=== PATIENT | male | born 1975 | race Caucasian/White ===

== ENCOUNTER → 2020-07-24 10:55 | Outpatient (CLI) | payer OTHER, SELFPAY ==
[2020-07-24] MEDS: COVID-19 VACC #2, MRNA(MOD) 100 MCG/0.5 ML VIAL IM (11:04)
== END ==
PROVIDERS: Visit Provider Internal Medicine
DX: Z23 Encounter for immunization (principal)
CPT/HCPCS: 0012A; 91301

== ENCOUNTER → 2020-12-19 08:57 | Outpatient (CLI) | payer OTHER, SELFPAY ==
[2020-12-19 19:36] LABS: Add Manual Diff / Slide Review NO; Basophils Absolute Auto 100 /uL (0-100); Basophils Percent Auto 1.2 % (0-2); Eosinophils Absolute Auto 200 /uL (0-450); Eosinophils Percent Auto 2.9 % (2-4); Hemoglobin 14.9 g/dL (13.5-17.5); Lymphocytes Absolute Auto 2700 /uL (1100-4500); Lymphocytes Percent Auto 44.7 % (25-40); Mean Corpuscular Hemoglobin 29.4 PG (26-34); Mean Corpuscular Volume 89.1 fL (80-100); Monocytes Absolute Auto 400 /uL (0-900); Monocytes Percent Auto 7.3 % (3-14); Neutrophils Absolute Auto 2600 /uL (1500-7000); Neutrophils Percent Auto 43.9 % (50-75); Platelet Count 245 X10^3/uL (150-400); Red Blood Cell Count 5.06 X10^6/uL (4.5-5.9); Red Cell Distribution Width 12.8 % (11.6-14.8); White Blood Cell Count 5.9 X10^3/uL (4.5-11.0)
[2020-12-19 19:44] LABS: Alanine Aminotransferase 36 IU/L (<50); Albumin 4.4 g/dL (3.5-5.0); Albumin Globulin Ratio 1.8 (1.0-2.8); Alkaline Phosphatase 88 U/L (38-126); Aspartate Aminotransferase 34 IU/L (17-59); BUN Creatinine Ratio 17.9 (6-22); Bilirubin Total 0.6 mg/dL (0.2-1.3); Blood Urea Nitrogen 14 mg/dL (9-20); Carbon Dioxide 28 mmol/L (22-32); Chloride 107 mmol/L (98-107); Cholesterol 219 mg/dL (140-199); Estimated Glomerular Filt Rate > 60.0 mL/min (>60); Globulin 2.5 g/dL (1.7-4.1); Glucose 97 mg/dL (70-100); HDL Cholesterol 37 mg/dL (40-60); HEMOLYSIS < 15 (0-50); LDL Cholesterol Calculated 147 mg/dL (<100); Potassium 4.3 mmol/L (3.4-5.1); Sodium 142 mmol/L (137-145); Total Protein 6.9 g/dL (6.3-8.2); Triglycerides 174 mg/dL (35-150); Uric Acid 6.2 mg/dL (3.5-8.5)
== END ==
PROVIDERS: PCP Family Medicine; Visit Provider Family Medicine
DX: R03.0 Elevated blood-pressure reading, without diagnosis of hypertension (principal); K57.90 Diverticulosis of intestine, part unspecified, without perforation or abscess without bleeding; M10.9 Gout, unspecified
CPT/HCPCS: 80053; 80061; 84550; 85025

== ENCOUNTER → 2022-11-09 13:56 | Outpatient (CLI) | payer OTHER, SELFPAY ==
[2022-11-09 19:27] LABS: Add Manual Diff / Slide Review NO; Basophils Absolute Auto 0 /uL (0-100); Basophils Percent Auto 0.3 % (0-2); Eosinophils Absolute Auto 100 /uL (0-450); Eosinophils Percent Auto 1.5 % (2-4); Hematocrit 43.1 % (41-53); Hemoglobin 14.9 g/dL (13.5-17.5); Lymphocytes Absolute Auto 3000 /uL (1100-4500); Lymphocytes Percent Auto 40.8 % (25-40); Mean Corpuscular HGB Conc 34.5 % (30-36); Mean Corpuscular Hemoglobin 30.6 PG (26-34); Mean Corpuscular Volume 88.7 fL (80-100); Monocytes Absolute Auto 500 /uL (0-900); Monocytes Percent Auto 6.4 % (3-14); Neutrophils Absolute Auto 3700 /uL (1500-7000); Platelet Count 271 X10^3/uL (150-400); Red Blood Cell Count 4.86 X10^6/uL (4.5-5.9); Red Cell Distribution Width 13.1 % (11.6-14.8); White Blood Cell Count 7.3 X10^3/uL (4.5-11.0)
[2022-11-09 19:39] LABS: Alanine Aminotransferase 40 IU/L (<50); Albumin 4.6 g/dL (3.5-5.0); Albumin Globulin Ratio 1.8 (1.0-2.8); Alkaline Phosphatase 96 U/L (38-126); Aspartate Aminotransferase 38 IU/L (17-59); Bilirubin Total 0.4 mg/dL (0.2-1.3); Blood Urea Nitrogen 17 mg/dL (9-20); Calcium 9.7 mg/dL (8.4-10.2); Carbon Dioxide 25 mmol/L (22-32); Chloride 104 mmol/L (98-107); Cholesterol 228 mg/dL (140-199); Estimated Glomerular Filt Rate > 60 mL/min (>60); Globulin 2.6 g/dL (1.7-4.1); Glucose 97 mg/dL (70-100); HDL Cholesterol 44 mg/dL (40-60); HEMOLYSIS 17 (0-50); LDL Cholesterol Calculated 151 mg/dL (<100); Potassium 3.8 mmol/L (3.4-5.1); Sodium 139 mmol/L (137-145); Total Protein 7.2 g/dL (6.3-8.2); Triglycerides 163 mg/dL (35-150)
== END ==
PROVIDERS: PCP Family Medicine; Visit Provider Family Medicine
DX: E78.2 Mixed hyperlipidemia (principal); I10 Essential (primary) hypertension; M10.9 Gout, unspecified; Z86.010 Personal history of colon polyps; Z87.19 Personal history of other diseases of the digestive system
CPT/HCPCS: 80053; 80061; 85025

== ENCOUNTER 2022-12-08 09:49 | Day surgery (SDC) | payer OTHER, SELFPAY ==
--- NOTE | 2022-12-08 | PATH_ITS ---
[facility] Accession Number: [id number] No. of containers..01 Tissue . 01 Material submitted: . colon - SIGMOID . 01 Diagnosis: Sigmoid Colon Polyp, Biopsy: Tubular adenoma. MRV 12/15/2022 1743 Local . 01 Electronically signed: . Rosmery Adorno MD, Pathologist NPI- [id number] . 01 Gross description: . SIGMOID: Received in formalin is 2 fragment(s) of ayoub, soft tissue measuring 0.3 x 0.2 x 0.2 cm to 0.2 x 0.2 x 0.1 cm submitted entirely in 1 cassette(s) /AAY 12/09/2022 0436 Local . 01 Pathologist provided ICD-10: D12.5 . 01 CPT . 661783 Specimen Comment: A courtesy copy of this report has been sent to [phone] Performed at: 01 [facility] Cyt[facility] [address] [place] [address] [id number] MD Beto Mars MD Phone: [phone]
[2022-12-08] MEDS: LACTATED RINGERS 1,000 ML 100 ML IV (10:02)
[2022-12-08 10:19] VITALS: BP 155/87; PULSE 68; RESP 18; TEMP 36.2; O2SAT 95; BMI 33.9
--- NOTE | 2022-12-08 10:44 | PM.HP.1 ---
History of Present Illness History of Present Illness Date Patient Seen: 12/08/22 Time Patient Seen: 10:44 Chief complaint: Dx Colonoscopy Narrative: 47-year-old man history of diverticular disease and colonic polyps here for screening colonoscopy. Last colonoscopy 67 years ago. No family history of intestinal malignancy. No abdominal concerns including pain, nausea vomiting blood per rectum unintentional weight loss. [facility] Medical History Diverticulosis Encounter for hepatitis C screening test for low risk patient Gout H/O clavicle fracture H/O rotator cuff tear History of meniscal tear Lipid screening Screening for HIV (human immunodeficiency virus) Social History household members: spouse Smoking Status: Former smoker alcohol intake: current Meds Home Medications and Allergies Home Medications Medication Instructions Recorded Confirmed Type colchicine (gout) 0.6 mg tablet 0.6 mg PO DAILY PRN gout #6 tabs 04/24/21 12/08/22 Rx allopurinol 300 mg tablet See Rx Instructions .Route 03/12/22 12/08/22 Rx .COMPLEX #90 tabs Allergies Allergy/AdvReac Type Severity Reaction Status Date / Time No Known Drug Allergies Allergy Verified 12/08/22 10:14 Exam Vital Signs (past 8 hours): - 12/08/22 10:19 Temperature 97.1 F L Pulse Rate 68 Respiratory Rate 18 Blood Pressure 155/87 H Pulse Oximetry 95 Oxygen Delivery Method Room Air Oxygen Delivery Method Room Air Narrative Exam Narrative: General adult man alert oriented no acute distress Chest nonlabored respiration Abdomen soft nontender nondistended Assessment & Plan Assessment and plan (1) History of colonic polyps: Status: Acute Assessment & Plan narrative: The patient requires colorectal screening and colonoscopy is recommended. Technical details were discussed. Risks, benefits, alternatives explained. Risks including but not limited to myocardial infarction, aspiration, bleeding, pain, missed lesion, incomplete examination, need for further radiographic studies, colonic perforation, and need for major abdominal surgery were discussed. All questions were answered to their satisfaction, and they are in agreement with this plan.
--- NOTE | 2022-12-08 10:49 | PM.OP.COLON ---
Operative Date/Time/Diagnoses Date of procedure: 12/08/22 Time of procedure: 10:49 Pre-op diagnosis: Personal history of colonic polyps Post-op diagnosis: other (Colonic polyp x1) Procedure & Clinicians Study performed: Colonoscopy Same procedure as scheduled: Yes Indications: 47-year-old man history of diverticular disease and colonic polyps here for screening colonoscopy. Surgeon: Edi Skaggs Procedure Notes Procedure in detail: The history and physical was performed/updated and the patient is ASA class is 2. The procedure was discussed in detail with the patient. Potential risks complications including infection, bleeding, missed diagnosis, perforation, need for surgery, and were explained. Their questions were answered and informed consent was obtained. Patient was brought to the procedure room and placed standard monitoring equipment. The patient's vital signs were monitored continuously throughout the entire procedure. Prior to starting time-out was performed. The patient was placed in the left lateral recumbent position. Procedural sedation was administered by anesthesia. Examination began with a thorough inspection of the perianal area there was no evidence of fissures, fistulae, external hemorrhoids or cutaneous malignancy. The colonoscopy scope was then placed into the anal canal and was advanced to the cecum, which was identified by the ileocecal valve, the appendiceal orifice and the confluence of the taenia. The scope was then slowly withdrawn examining colon thoroughly in all directions, irrigating it of any residual stool. Sigmoid-3 mm polyp removed with biopsy forceps. Moderate diverticulosis. Remainder of colon unremarkable The patient tolerated the procedure well. They will be discharged once criteria are met. The prep was of good/excellent quality. The withdrawl time was 6 minutes. Specimen(s): other (Sigmoid polyp) Impression: Colonic polyp x1 Post-procedure Recommendations: High fiber diet Plan for aftercare: Follow-up is dependent on pathology. Likely 5 years. Disposition: same day surgery
[2022-12-08 11:08] VITALS: BP 110/69; PULSE 66; RESP 20; TEMP 36.2; O2SAT 94
[2022-12-08 11:13] VITALS: BP 104/70; PULSE 62; RESP 18; O2SAT 95
[2022-12-08 11:20] VITALS: BP 114/76; PULSE 61; RESP 18; TEMP 36.7; O2SAT 94
[2022-12-08 11:21] VITALS: BP 127/81; PULSE 68; RESP 10; O2SAT 95
== END 2022-12-08 11:42 | disposition home or self-care (01) ==
PROVIDERS: Surgery; PCP Family Medicine; Referring Provider Surgery; Visit Provider Surgery
PROC: 0DJD8ZZ Inspection of Lower Intestinal Tract, Via Natural or Artificial Opening Endoscopic (ICD-10-PCS; CPT 45378; principal; 2022-12-08 11:00)
DX: Z12.11 Encounter for screening for malignant neoplasm of colon (principal); Z86.010 Personal history of colon polyps; K57.30 Diverticulosis of large intestine without perforation or abscess without bleeding; D12.5 Benign neoplasm of sigmoid colon
CPT/HCPCS: 45380; J2704

== ENCOUNTER → 2023-11-08 09:37 | Outpatient (CLI) | payer OTHER, SELFPAY | LOC: CAR 09:38 | PROVIDERS: PCP Family Medicine; Referring Provider Family Medicine; Visit Provider Family Medicine | DX: R00.2 Palpitations (principal) | CPT/HCPCS: 93246 ==

== ENCOUNTER → 2023-11-17 09:43 | Outpatient (CLI) | payer OTHER, SELFPAY ==
[2023-11-17 20:10] LABS: Add Manual Diff / Slide Review NO; Basophils Absolute Auto 0 /uL (0-100); Basophils Percent Auto 0.7 % (0-2); Eosinophils Absolute Auto 200 /uL (0-450); Eosinophils Percent Auto 3.2 % (2-4); Hematocrit 45.3 % (41-53); Hemoglobin 15.4 g/dL (13.5-17.5); Lymphocytes Absolute Auto 2300 /uL (1100-4500); Lymphocytes Percent Auto 37.9 % (25-40); Mean Corpuscular HGB Conc 34.1 % (30-36); Mean Corpuscular Hemoglobin 30.7 PG (26-34); Mean Corpuscular Volume 90.2 fL (80-100); Monocytes Absolute Auto 500 /uL (0-900); Monocytes Percent Auto 7.6 % (3-14); Neutrophils Absolute Auto 3000 /uL (1500-7000); Neutrophils Percent Auto 50.6 % (50-75); Platelet Count 279 X10^3/uL (150-400); Red Blood Cell Count 5.02 X10^6/uL (4.5-5.9); Red Cell Distribution Width 12.9 % (11.6-14.8)
[2023-11-17 20:17] LABS: BUN Creatinine Ratio 19.1 (6-22); Blood Urea Nitrogen 17 mg/dL (9-20); Calcium 9.8 mg/dL (8.4-10.2); Carbon Dioxide 24 mmol/L (22-32); Chloride 106 mmol/L (98-107); Cholesterol 229 mg/dL (140-199); Estimated Glomerular Filt Rate > 60 mL/min (>60); Glucose 94 mg/dL (70-100); HDL Cholesterol 36 mg/dL (40-60); HEMOLYSIS 30 (0-50); LDL Cholesterol Calculated 151 mg/dL (<100); Potassium 4.5 mmol/L (3.4-5.1); Sodium 139 mmol/L (137-145); Triglycerides 211 mg/dL (35-150); Uric Acid 6.2 mg/dL (3.5-8.5)
[2023-11-17 20:48] LABS: Prostate Specific Antigen Scrn 0.414 ng/mL (0.1-4.0)
== END ==
PROVIDERS: PCP Family Medicine; Referring Provider Family Medicine; Visit Provider Family Medicine
DX: R07.89 Other chest pain (principal); I10 Essential (primary) hypertension; E78.2 Mixed hyperlipidemia; Z12.5 Encounter for screening for malignant neoplasm of prostate; M1A.09X0 Idiopathic chronic gout, multiple sites, without tophus (tophi)
CPT/HCPCS: 80048; 80061; 84550; 85025; G0103

== ENCOUNTER → 2024-02-03 | Outpatient (CLI) | payer BC, SELFPAY ==
--- NOTE | 2024-02-03 07:57 | DI.ECHO.S_ITS ---
[place] [facility]---------+ [facility] : : [address] : : [place] : : [id number] : : Phone: [phone] Echocardiogram Report + + :Name: ALLAN NARVAEZ Study Date: 02/03/2024 Height: 72 in : :[facility] ReadingLocation: Weight: 255 lb : : Gender: Male BSA: 2.4 m2 : :: 1975 Age: 48 yrs BP: 137/89 mmHg: :Reason For Study: NSVT : :Ordering Physician: SERINA : :EMEKA Performed By: Fawn Almazan : :Referring: EMEKA SMALLS : + + Interpretation Summary Normal sinus rhythm. Normal LV size and wall thickness. Normal wall motion and LV systolic function. Ejection fraction 60-65%. Normal chamber sizes. No significant valvular abnormalities. No PFO based on bubble study. Procedure: A two-dimensional transthoracic echocardiogram with color flow and Doppler was performed. The study quality was technically adequate. There is no prior echocardiogram noted for this patient. A saline contrast injection was performed to assess for cardiac shunting. The injection was performed through an intravenous line in the left arm. The patient was in sinus rhythm with heart rates between 59-77 bpm during the exam. Left Ventricle: The left ventricle is normal in size and wall thickness. The ejection fraction is estimated to be 60-65%. Right Ventricle: The right ventricle is normal in size and function. Atria: The left atrial size is normal. Right atrial size is normal. The atrial septum is aneurysmal. Injection of contrast documented no interatrial shunt. Mitral Valve: The mitral valve is normal in structure and function. There is mild mitral regurgitation. Aortic Valve: The aortic valve is mildly calcified. The aortic valve opens well. There is no aortic valve stenosis. There is trace aortic regurgitation. Tricuspid Valve: The tricuspid valve is normal in structure and function. There is trace tricuspid regurgitation. Pulmonary artery pressures cannot be estimated because of the lack of a measurable TR jet velocity. Pulmonic Valve: The pulmonic valve leaflets are thin and pliable; valve motion is normal. There is no pulmonic valvular regurgitation. Great Vessels: The aortic root is normal size. The dimensions of the ascending aorta are normal. The IVC is of normal diameter and collapses greater than 50% with a sniff. This suggests a low right atrial pressure of 3 mm Hg. Pericardium/ Pleura There is no pericardial effusion. There is no pleural effusion. MMode/2D Measurements & Calculations LVIDd: 4.8 cm LVOT diam: 2.1 cm LVIDs: 3.3 cm Ao root diam: 3.3 cm FS: 31.7 % asc Aorta Diam: 3.3 cm IVSd: 0.96 cm Ao Arch Diam (Prox Trans): 3.9 cm LVPWd: 0.82 cm LV roberson. diameter/BSA (cm/m^2): 2.0 LV sys. diameter/BSA (cm/m^2): 1.4 LA A2 area: 22.9 cm2 RA long axis: 5.2 cm LA A4 area: 19.9 cm2 RA area: 18.1 cm2 LA length (vol): 5.7 cm RA vol: 54.1 ml LA vol: 68.4 ml RA : 22.9 ml/m2 LA vol index: 29.0 ml/m2 IVC diam: 1.5 cm RVD1 (basal): 3.4 cm RVD2 (mid): 3.1 cm TAPSE: 2.2 cm Doppler Measurements & Calculations Ao V2 max: 161.0 cm/sec LVOT Max Henok: 118.8 cm/sec Ao V2 mean: 103.7 cm/sec LV V1 max P.6 mmHg Ao max P.4 mmHg LV V1 VTI: 26.1 cm Ao mean P.1 mmHg KEVIN(I,D): 2.7 cm2 Ao V2 VTI: 33.9 cm KEVIN(V,D): 2.6 cm2 sev ratio: 0.77 KEVIN indexed to BSA (cm^2/m^2): 1.2 MV E max henok: 80.4 cm/sec PA V2 max: 150.3 cm/sec MV A max henok: 45.8 cm/sec PA V2 mean: 98.7 cm/sec MV E/A: 1.8 PA mean P.6 mmHg Med Peak E' Henok: 11.3 cm/sec PA pr(Accel): 20.8 mmHg E/E' med: 7.1 Lat Peak E' Henok: 13.6 cm/sec E/E' lat: 5.9 E/e' average: 6.5 MV dec time: 0.19 sec SV(LVOT): 93.3 ml Electronically signed by: Victoria Haq M.D. on Reading Physician:02/03/2024 11:30 PM
--- NOTE | 2024-02-03 20:07 | DI.NM.S_ITS ---
DATE OF SERVICE: 02/03/2024 EXERCISE STRESS TEST INDICATION: Chest pain, hypertension, hyperlipidemia. CARDIAC STRESS: The patient underwent exercise stress test under the supervision of an attending staff using standard Louis protocol. He walked on Louis protocol for 12 minutes and 24 seconds, achieved maximum heart rate of 169, which was 99% of target heart rate. Resting blood pressure 130/90 and peak blood pressure 220/100 suggestive of hypertensive blood pressure response. Baseline rhythm was sinus. During stress, no convincing ischemic changes seen. Rare PVCs. No chest pain. Had some shortness of breath. Achieved 12.8 METS of workload. ENIO -15%. CONCLUSION: Exercise stress test is negative for inducible ischemia. Excellent exercise tolerance. Hypertensive blood pressure response. No significant arrhythmias. No chest pain. Normal recovery. Overall, low- risk exercise stress test. Silver Whittaker - CANDE/bradly/RENAE doc#: [id number]/job#: [id number] dd: 02/03/2024 17:03:00 dt: 02/03/2024 20:00:00 DICTATING /COPIES TO: Costa Parker MD COPIES MNE: PORFIRIO;
== END ==
LOC: NUCM 07:55
PROVIDERS: PCP Family Medicine; Referring Provider Family Medicine; Visit Provider Family Medicine
DX: I34.0 Nonrheumatic mitral (valve) insufficiency (principal); I47.29 Other ventricular tachycardia; I10 Essential (primary) hypertension; E78.2 Mixed hyperlipidemia; R07.9 Chest pain, unspecified
CPT/HCPCS: 93017; 93306

== ENCOUNTER 2024-07-04 13:36 | Emergency (ER) | payer BC, SELFPAY ==
[2024-07-04 13:50] VITALS: BP 171/97; PULSE 74; RESP 18; TEMP 36.4; O2SAT 98; BMI 35.2
[2024-07-04 16:05] LABS: Add Manual Diff / Slide Review NO; Basophils Absolute Auto 0 /uL (0-100); Basophils Percent Auto 0.8 % (0-2); Eosinophils Absolute Auto 200 /uL (0-450); Eosinophils Percent Auto 2.6 % (2-4); Hematocrit 43.5 % (41-53); Hemoglobin 14.8 g/dL (13.5-17.5); Lymphocytes Absolute Auto 2600 /uL (1100-4500); Lymphocytes Percent Auto 43.6 % (25-40); Mean Corpuscular HGB Conc 34.1 % (30-36); Mean Corpuscular Hemoglobin 29.9 PG (26-34); Mean Corpuscular Volume 87.8 fL (80-100); Monocytes Absolute Auto 300 /uL (0-900); Neutrophils Absolute Auto 2900 /uL (1500-7000); Platelet Count 283 X10^3/uL (150-400); Red Blood Cell Count 4.95 X10^6/uL (4.5-5.9); Red Cell Distribution Width 13.6 % (11.6-14.8); White Blood Cell Count 6.1 X10^3/uL (4.5-11.0)
[2024-07-04 16:13] LABS: Alanine Aminotransferase 69 IU/L (<50); Albumin 4.5 g/dL (3.5-5.0); Albumin Globulin Ratio 1.7 (1.0-2.8); Alkaline Phosphatase 79 U/L (38-126); Aspartate Aminotransferase 48 IU/L (17-59); BUN Creatinine Ratio 21.3 (6-22); Bilirubin Total 0.5 mg/dL (0.2-1.3); Blood Urea Nitrogen 19 mg/dL (9-20); Calcium 9.7 mg/dL (8.4-10.2); Carbon Dioxide 24 mmol/L (22-32); Chloride 108 mmol/L (98-107); Estimated Glomerular Filt Rate > 60 mL/min (>60); Globulin 2.6 g/dL (1.7-4.1); Glucose 112 mg/dL (70-100); HEMOLYSIS < 15 (0-50); Lipase 107 U/L (23-300); Potassium 3.9 mmol/L (3.4-5.1); Sodium 142 mmol/L (137-145); Total Protein 7.1 g/dL (6.3-8.2)
[2024-07-04 16:26] VITALS: BP 161/98; PULSE 61; O2SAT 97
[2024-07-04 16:30] VITALS: BP 156/97; PULSE 62; O2SAT 96
--- NOTE | 2024-07-04 16:48 | ED.ABDPAIN ---
HPI - Abdominal Pain General Chief Complaint: Abdominal Pain Stated Complaint: Stomach pain, Distended Time Seen by Provider: 07/04/24 16:36 Source: patient and family Mode of arrival: Ambulatory History of Present Illness HPI narrative: 49-YEAR-OLD MALE HISTORY OF GOUT, HEART ARRHYTHMIA, DIVERTICULITIS, PRESENTS WITH LEFT LOWER QUADRANT PAIN FOR 4 5 DAYS TOOK OLD ANTIBIOTICS AMOXICILLIN WITH NO SIGNIFICANT RELIEF OF SYMPTOMS CAME IN TO BE EVALUATED. DENIES HEMATURIA PENILE DISCHARGE TESTICULAR PAIN NAUSEA VOMITING DIARRHEA CONSTIPATION. OTHER THAN WHAT IS STATED 14 POINT REVIEW OF SYSTEM IS NEGATIVE Related Data Previous Rx's Medication Instructions Recorded allopurinol 300 mg tablet 300 mg PO DAILY For gout-take 11/01/23 every day. Do not stop. #90 tabs colchicine 0.6 mg tablet 0.6 mg PO DAILY PRN gout #60 tabs 11/01/23 metoprolol succinate 25 mg 25 mg PO DAILY #90 tabs 12/13/23 tablet,extended release 24 hr (Toprol XL) ofloxacin 0.3 % eye drops (Ocuflox) 1 drp EYE-LEFT QID #5 mL 12/13/23 betamethasone dipropionate 0.05 % 1 applic topical QD-BID PRN skin 06/07/24 topical ointment irritation, rash #45 grams Allergies Allergy/AdvReac Type Severity Reaction Status Date / Time No Known Drug Allergies Allergy Verified 07/04/24 09:56 Review of Systems Review of Systems ROS Unobtainable: All systems reviewed & are unremarkable except as noted in HPI and below Patient History Medical History (Updated 07/04/24 @ 17:44 by Freddy Alexandre DO) Lipid screening Encounter for hepatitis C screening test for low risk patient Screening for HIV (human immunodeficiency virus) H/O clavicle fracture History of meniscal tear H/O rotator cuff tear Gout Social History household members: spouse Smoking Status: Former smoker alcohol intake: current Smoking Status: Former smoker alcohol intake frequency: 0-2 drinks per day Alcohol type: beer and hard liquor Exam Narrative Exam Narrative: GENERAL: [49] year old patient appears stated age. Well-developed patient, in mild distress. HEAD: Atraumatic. Normocephalic. EYES: Pupils equal round and reactive. Extraocular motions intact. No scleral icterus. No injection or drainage. ENT: Nose without bleeding, purulent drainage. Throat without erythema, tonsillar hypertrophy or exudate. Airway patent. NECK: Trachea midline. Non tender CARDIOVASCULAR: Regular rate and rhythm without murmurs, gallops, or rubs. RESPIRATORY: Clear to auscultation. Breath sounds equal bilaterally. No wheezes, rales, or rhonchi. GASTROINTESTINAL: Abdomen soft, mod LLQ ttp but no r/r/g EXTREMITIES: No edema or joint tenderness. BACK: Nontender without deformity or crepitance. No flank tenderness. NEURO: AOx3. SKIN: No rash or erythema of visible areas Initial Vital Signs Initial Vital Signs: Vital Signs Temperature 97.6 F 07/04/24 13:50 Pulse Rate 74 07/04/24 13:50 Respiratory Rate 18 07/04/24 13:50 Blood Pressure 171/97 H 07/04/24 13:50 Pulse Oximetry 98 07/04/24 13:50 Oxygen Delivery Method Room Air 07/04/24 13:50 Course Orders Ordered: ED Orders 07/04/24 14:08 Complete Blood Count AUTO DIFF Stat Comprehensive Metabolic Panel Stat Lipase Stat 07/04/24 15:50 EKG-12 Lead Stat 07/04/24 16:48 CT abdomen pelvis w con Stat Lactated Ringer's (Lactated Ringers) 1,000 mls @ 1,000 mls/hr IV BOLUS ONE Stop: 07/04/24 17:48 Ondansetron HCl (Ondansetron 4 Mg/2 Ml Inj) 4 mg IV NOW PRN PRN Reason: Nausea And Vomiting Ondansetron HCl (Ondansetron 4 Mg Odt) 4 mg PO NOW PRN PRN Reason: Nausea And Vomiting Discontinued Medications Ketorolac Tromethamine (Ketorolac 30 Mg/Ml Vial) 15 mg IV NOW ONE Stop: 07/04/24 16:50 Vital Signs Vital signs: Vital Signs - 8 hr 07/04/24 13:50 Temperature 97.6 F Pulse Rate 74 Respiratory Rate 18 Blood Pressure 171/97 H Pulse Oximetry 98 Oxygen Delivery Method Room Air MDM - Abdominal Pain Lab Data 07/04/24 14:08 07/04/24 14:08 Labs: Lab Results 07/04/24 Range/Units 14:08 WBC 6.1 (4.5-11.0) X10^3/uL RBC 4.95 (4.5-5.9) X10^6/uL Hgb 14.8 (13.5-17.5) g/dL Hct 43.5 (41-53) % MCV 87.8 (80-100) fL MCH 29.9 (26-34) PG MCHC 34.1 (30-36) % RDW 13.6 (11.6-14.8) % Plt Count 283 (150-400) X10^3/uL Neut % (Auto) 48.0 L (50-75) % Lymph % (Auto) 43.6 H (25-40) % Hartley % (Auto) 5.0 (3-14) % Eos % (Auto) 2.6 (2-4) % Baso % (Auto) 0.8 (0-2) % Neut # (Auto) 2900 (4353-2654) /uL Lymph # (Auto) 2600 (9988-9861) /uL Hartley # (Auto) 300 (0-900) /uL Eos # (Auto) 200 (0-450) /uL Baso # (Auto) 0 (0-100) /uL Sodium 142 (137-145) mmol/L Potassium 3.9 (3.4-5.1) mmol/L Chloride 108 H (98-107) mmol/L Carbon Dioxide 24 (22-32) mmol/L BUN 19 (9-20) mg/dL Creatinine 0.89 (0.66-1.25) mg/dL Estimated GFR > 60 (>60) mL/min BUN/Creatinine Ratio 21.3 (6-22) Glucose 112 H (70-100) mg/dL Calcium 9.7 (8.4-10.2) mg/dL Total Bilirubin 0.5 (0.2-1.3) mg/dL AST 48 (17-59) IU/L ALT 69 H (<50) IU/L Alkaline Phosphatase 79 (38-126) U/L Total Protein 7.1 (6.3-8.2) g/dL Albumin 4.5 (3.5-5.0) g/dL Globulin 2.6 (1.7-4.1) g/dL Albumin/Globulin Ratio 1.7 (1.0-2.8) Lipase 107 (23-300) U/L Point of care testing: Urine Dip Bedside Urine Glucose Negative Bedside Urine Bilirubin - Negative Bedside Urine Ketone - Negative Urine Specific [place] 1.015 Bedside Urine Occult Blood - Negative Bedside Urine pH 6.5 Bedside Urine Protein - Negative Bedside Urine Urobilinogen - Negative Bedside Urine Nitrite - Negative Bedside Urine Leukocytes - Negative Esterase Imaging Data CT scan - abdomen/pelvis: Radiologist's Impression: [address] [address] [address] Scan Report Signed Patient: Silver Whittaker MR#: [id number] : 1975 Acct:[id number] Age/Sex: 49 / M Date of Service: 07/04/24 Loc: ED Accession Number: [id number] Procedure: CT abdomen pelvis w con Ordering Provider: Freddy Alexandre D.O. PROCEDURE: CT ABDOMEN PELVIS W CON INDICATIONS: abd pain llq TECHNIQUE: After the administration of intravenous contrast, axial sections acquired from the lung bases to the pubic symphysis. Coronal and sagittal reformats were performed. For radiation dose reduction, the following was used: automated exposure control, adjustment of mA and/or kV according to patient size. COMPARISON: None. FINDINGS: Image quality: Diagnostic. Lower Chest: No significant findings. ABDOMEN: Liver: No solid mass. Gallbladder: No radiopaque gallstones or wall thickening. Biliary ducts: No biliary dilation. Pancreas: No ductal dilation. Spleen: Size is within normal limits. Adrenal Glands: No adrenal nodules. Kidneys and Ureters: No hydronephrosis. No solid mass. No complex renal cystic lesion which requires follow up. Stomach and Bowel: Normal colonic caliber, without significant wall thickening. Colonic diverticulosis without evidence of diverticulitis. Normal appendix. Peritoneum: No abnormal intraperitoneal fluid. No free air. Ventral Wall: No significant ventral hernia. Abdominal Nodes: No retroperitoneal or mesenteric adenopathy by size criteria. Vessels: Aorta and inferior vena cava are normal in size. PELVIS: Pelvic Organs: Unremarkable. Bladder: No bladder wall thickening, accounting for underdistention. Pelvic Nodes: No enlarged lymph nodes. Miscellaneous: Moderate left inguinal hernia containing fat. Bones: No aggressive osseous abnormality. Degenerative disc disease of the lumbar spine. Grade 1 anterolisthesis of L5 on S1 secondary to pars defects. IMPRESSION: Moderate left inguinal hernia containing fat. Colonic diverticulosis without evidence of diverticulitis. No nephrolithiasis. Grade 1 anterolisthesis of L5 on S1 secondary to pars defects. Recommend outpatient neuro surgical referral as findings could lead to dynamic instability. Dictated by: Hernan Salmeron M.D. on 07/04/2024 at 16:59 Approved by: Hernan Salmeron M.D. on 07/04/2024 at 17:02 [facility] Narrative Medical decision making narrative: All lab work, CT scan, all reviewed including vital signs, triage note, medication list, and previous ER visits. differential diagnosis includes kidney stone, kidney infection, diverticulitis, pancreatitis, hernia, tumor or mass. patient will follow up with his PCP for potential GI referral for repeat endoscopy and/or colonoscopy. Return with new or worsening symptoms. Discharge Plan Departure Patient Disposition: Home Clinical Impression: Abdominal pain, acute, left lower quadrant Inguinal hernia Qualifiers: Obstruction and gangrene presence: without obstruction or gangrene Laterality: unilateral Recurrence: not specified as recurrent Qualified Code(s): K40.90 - Unilateral inguinal hernia, without obstruction or gangrene, not specified as recurrent Activity Restrictions/Additional Instructions: return with new or worsening symptoms. Follow up with PCP for referral to Neurosurgery and GI MD. Prescriptions: No Action betamethasone dipropionate 0.05 % ointment 1 applic topical QD-BID PRN (Reason: skin irritation, rash) Qty: 45 0RF allopurinol 300 mg tablet 300 mg PO DAILY Qty: 90 3RF colchicine 0.6 mg tablet 0.6 mg PO DAILY PRN (Reason: gout) Qty: 60 0RF Rx Instructions: take 2 tablets (1.2 mg) by mouth at first sign of flare. May repeat with 1 tablet (0.6 mg) one hour later if needed. ofloxacin [Ocuflox] 0.3 % drops 1 drp EYE-LEFT QID Qty: 5 0RF metoprolol succinate [Toprol XL] 25 mg tablet extended release 24 hr 25 mg PO DAILY Qty: 90 0RF Referrals: Marty Hernandez MD [Primary Care Provider] - Stand Alone Forms: Patient Portal/API/Survey
[2024-07-04 17:00] VITALS: PULSE 60; O2SAT 96
[2024-07-04] MEDS: KETOROLAC 30 MG/ML VIAL 15 MG IV (17:22)
[2024-07-04] MEDS: LACTATED RINGERS 1,000 ML 1000 ML IV (17:22)
[2024-07-04 17:30] VITALS: PULSE 57; O2SAT 97
[2024-07-04 17:48] VITALS: BP 183/101; PULSE 64; O2SAT 96
== END 2024-07-04 17:48 | disposition home or self-care (01) ==
PROVIDERS: Emergency Provider Family Medicine; PCP Family Medicine
DX: K40.90 Unilateral inguinal hernia, without obstruction or gangrene, not specified as recurrent (principal)
CPT/HCPCS: 74177; 80053; 81003; 83690; 85025; 96374; 99283; 99284; J1885; Q9967

== ENCOUNTER → 2024-07-17 18:36 | Outpatient (CLI) | payer BC, SELFPAY ==
--- NOTE | 2024-07-17 18:39 | DI.MRI.S_ITS ---
PROCEDURE: MR THORACIC SPINE WO CON INDICATIONS: Thoracic radiculopathy vrs lateral abdom hernina TECHNIQUE: Noncontrast sagittal T1 spine echo and T2 fast spin echo, sagittal STIR, and T2 fast spin echo through the thoracic spine. COMPARISON: None. FINDINGS: Image quality: Excellent. Alignment and Curvature: There is normal bony alignment. Bone Marrow: Marrow is of normal overall signal. No acute vertebral body compression fractures. Spinal Cord: Visualized spinal cord is normal in size and signal. Paraspinous Soft Tissues: No paravertebral masses. Miscellaneous: On axial images, central canal and foramina appear widely patent at all scanned levels. There is a shallow left paracentral disc protrusion at T5-T6. There is mild right paracentral disc bulge at T6-T7. These do not impinge on the cord or nerve root structures. IMPRESSION: No thoracic canal stenosis or foraminal stenosis. Mild disc protrusion at T5-T6 and disc bulge at T6-T7. Dictated by: Kingston Colby M.D. on 07/17/2024 at 19:38 Approved by: Kingston Colby M.D. on 07/17/2024 at 19:42
== END ==
LOC: MRI 18:37
PROVIDERS: PCP Family Medicine; Referring Provider Family Medicine; Visit Provider Family Medicine
DX: M51.14 Intervertebral disc disorders with radiculopathy, thoracic region (principal)
CPT/HCPCS: 72146

== ENCOUNTER → 2024-08-08 10:48 | Outpatient (CLI) | payer BC, SELFPAY ==
--- NOTE | 2024-08-08 10:49 | DI.US.S_ITS ---
PROCEDURE: US ABDOMEN LIMITED INDICATIONS: MASS/PAIN LEFT UPPER QUADRANT ?LUQ ABDOMINAL WALL HERNIA TECHNIQUE: Real-time focused scanning was performed of the abdomen, with image documentation. COMPARISON: [facility], CT, CT ABDOMEN PELVIS W CON, 07/04/2024, 16:57. FINDINGS: No significant abnormality is seen in the pelvic area of concern in the left upper quadrant /left flank abdominal wall. Spleen is normal in size at 9.4 cm. Left kidney is normal and measures up to 11.7 cm. IMPRESSION: No significant sonographic abnormality at the palpable area of concern. Approved by: Mauricio Reed M.D. on 08/08/2024 at 19:22
== END ==
LOC: US 10:48
PROVIDERS: PCP Family Medicine; Referring Provider Family Medicine; Visit Provider Family Medicine
DX: N63.21 Unspecified lump in the left breast, upper outer quadrant (principal); R10.12 Left upper quadrant pain
CPT/HCPCS: 76705

== ENCOUNTER 2025-01-24 08:52 | Day surgery (SDC) | payer BC, SELFPAY ==
[2025-01-05 08:25] VITALS: BMI 34.9
--- NOTE | 2025-01-23 10:51 | EKG_ITS ---
[facility] [address] [place] [address] Test Date: 2025-01-23 Pat Name: Silver Whittaker Department: [facility] Room: Gender: Male Banquet Lead: WILFREDO : 1975 Requested By: Order Number: [id number] Reading MD: Freddy Jarrett MD Measurements Intervals [place] Rate: 88 P: 44 HI: 266 QRS: -52 QRSD: 96 T: 13 QT: 350 QTc: 423 Interpretive Statements Sinus rhythm with 1st degree AV block Pulmonary disease pattern Left anterior fascicular block Minimal voltage criteria for LVH, may be normal variant ( R in aVL ) NO PRIOR TRACING Electronically Signed On 01-24-2025 8:18:05 PDT by Freddy Jarrett MD
[2025-01-24] VITALS (9 sets, daily range): BP systolic 115–153; BP diastolic 57–92; PULSE 54–59; RESP 12–19; TEMP 36.2–36.8; O2SAT 93–99
--- NOTE | 2025-01-24 09:16 | EKG_ITS ---
[place] [address] [address] [address] Test Date: 2025-01-24 Pat Name: Silver Whittaker Department: Room: Gender: Male Assistant Financial Accountant: Andrea LENZ : 1975 Requested By: Order Number: [id number] Reading MD: Freddy Jarrett MD Measurements Intervals [place] Rate: 52 P: 43 GA: 164 QRS: 1 QRSD: 102 T: 39 QT: 430 QTc: 399 Interpretive Statements Sinus bradycardia Electronically Signed On 01-25-2025 7:36:10 PDT by Freddy Jarrett MD
[2025-01-24] MEDS: LACTATED RINGERS 1,000 ML 42 ML IV (09:32)
[2025-01-24] MEDS: ACETAMINOPHEN 325 MG TABLET 975 MG PO (09:32)
--- NOTE | 2025-01-24 10:05 | P.HP_ITS ---
History of Present Illness History of Present Illness Date Patient Seen: 01/24/25 Time Patient Seen: 10:06 Chief complaint: Robotic LIH repair w/mesh Narrative: Silver is a 49-year-old man with a left inguinal hernia. See the office note for details. His left upper quadrant discomfort and bulge has gone away. [facility] Medical History (Updated 08/22/24 @ 12:56 by Marcella Alvarez RN) Polymorphic ventricular tachycardia Neoplasm of uvula Lipid screening Encounter for hepatitis C screening test for low risk patient Screening for HIV (human immunodeficiency virus) H/O clavicle fracture History of meniscal tear H/O rotator cuff tear Gout Social History household members: spouse Smoking Status: Never smoker alcohol intake: current Meds Home Medications and Allergies Home Medications ?Medication ?Instructions ?Recorded ?Confirmed ?Type colchicine 0.6 mg tablet 0.6 mg PO DAILY PRN gout #60 tabs 11/01/23 01/24/25 Rx metoprolol succinate 25 mg 25 mg PO DAILY #90 tabs 12/2701/24/25 Rx tablet,extended release 24 hr (Toprol XL) ofloxacin 0.3 % eye drops (Ocuflox) 1 drp EYE-LEFT QID #5 mL 12/13/23 11/23/24 Rx allopurinol 300 mg tablet 300 mg PO DAILY For gout-isaac e 11/08/24 01/24/25 Rx every day. Do not stop. #90 tabs Allergies Allergy/AdvReac Type Severity Reaction Status Date / Time No Known Drug Allergies Allergy Verified 01/24/25 09:26 Exam Vital Signs (past 8 hours): - 01/24/25 09:44 Temperature 97.2 F L Pulse Rate 57 L Respiratory Rate 16 Blood Pressure 148/90 H Pulse Oximetry 97 Oxygen Delivery Method Room Air Oxygen Delivery Method Room Air Const General: No acute distress Assessment & Plan Assessment and plan (1) Inguinal hernia, left: Status: Acute Plan Robotic left inguinal hernia repair with mesh. We will look around the abdomen to make sure there were no other abnormalities. We will make sure there is no right inguinal hernia and no left upper quadrant ventral hernia. Time-Based Coding :: [TOTAL MINUTES] spent with patient and on the chart (including review of chart, obtaining history, exam, reviewing outside data, placing orders, documenting exam and treatment plan, and counseling patient) on [DATE]. [employer] Document charge(s): No
--- NOTE | 2025-01-24 11:10 | SUR.OPER ---
Supine on padded OR bed, head on pillow, arms padded and tucked at sides, purple strap across shoulders, legs uncrossed, safety belt at thigh, final positioning approved by provider .
--- NOTE | 2025-01-24 11:55 | PM.OP.1 ---
Operative Date/Time/Diagnoses Date of procedure: 01/24/25 Time of procedure: 11:55 Pre-op diagnosis: Left inguinal hernia Post-op diagnosis: same Procedure & Clinicians Procedure: Robotic left inguinal hernia repair with mesh Same procedure(s) as scheduled: Yes Surgeon: Edson Davenport Assisted?: Yes Global Technical Writer: Rd Felton Anesthesia Type: General Operative Notes Findings: Large fatty cord lipoma in a left indirect Applied: none Estimated Blood Loss (mL): 5 Procedure in detail: The patient was given preoperative antibiotics. The patient was brought to the operating room, placed on the table in the supine position with the arms tucked and general anesthesia was induced. The abdomen was prepped and draped in the usual fashion. A time-out was performed. A 1 cm transverse incision was created superior to the umbilicus and dissection was carried down to the fascia. The fascia was grasped with a Aracelis clamp to elevate the abdominal wall. The fascia was scored transversely with cautery. A Peon clamp was used to villegas the peritoneum. The 12 mm robotic port was placed and the abdomen was insufflated to 15 mmHg. The camera was inserted, there was no evidence of any injury from the entry. 8 mm ports were placed under direct vision in the mid left and mid right abdomen. The patient was positioned in Trendelenburg. The robot was docked. We created left peritoneal flap. The peritoneum was dissected off the left cord structures and the Curtis's ligament was exposed. The fatty cord lipoma was dissected out of the internal ring but left attached to its blood supply. An extra-large left Bard mesh was placed over the defect with the medial edge overlapping the pubic symphysis. The cord lipoma was placed within the inner curvature of the mesh. We then closed the peritoneal flap with a running 3-0 barbed suture. We took one last look around the abdomen and saw no other abnormalities. The suture was removed and accounted for. The robot was undocked. The 8 mm ports were removed under direct vision. The abdomen was desufflated. The 12 mm port was removed. Additional local was injected into the fascia and the fascial incision was closed with 2 interrupted 0 Vicryl sutures. The skin incisions were closed with 4 Monocryl, Steri-Strips and Band-Aids. Rd ECHOLS provided assistance with exposure, retraction and closure of incisions. Complications: none Post-operative Condition: stable Disposition: PACU
== END 2025-01-24 13:39 | disposition home or self-care (01) ==
PROVIDERS: PCP Family Medicine; Referring Provider Surgery; Visit Provider Surgery
PROC: 0YQ64ZZ Repair Left Inguinal Region, Percutaneous Endoscopic Approach (ICD-10-PCS; CPT 49650; principal; 2025-01-24 10:15)
DX: K40.90 Unilateral inguinal hernia, without obstruction or gangrene, not specified as recurrent (principal); D17.6 Benign lipomatous neoplasm of spermatic cord
CPT/HCPCS: 49650; 93005; 93010; S2900; C1781; J0330; J0689; J1100; J1885; J2405; J2704; J3010; J3490; J7120